=== PATIENT | female | born 1980 | race Caucasian/White ===

== ENCOUNTER 2017-05-15 21:47 | Emergency (ER) | payer SELFPAY ==
[~2017-05-15] VITALS: Ht 160 cm; Wt 81.8 kg
[2017-05-16 06:03] VITALS: BP 122/69
[2017-05-16] MEDS ORDERED: METHOCARBAMOL 500 MG TABLET PO ONE (06:15)
[2017-05-16] MEDS ORDERED: NAPROXEN 250 MG TABLET PO ONE (06:15)
== END 2017-05-16 06:47 | disposition home or self-care (01) ==
LOC: EMS 21:50
DX: S29.012A Strain of muscle and tendon of back wall of thorax, initial encounter (principal); M53.3 Sacrococcygeal disorders, not elsewhere classified; X58.XXXA Exposure to other specified factors, initial encounter; Y93.89 Activity, other specified; Y92.89 Other specified places as the place of occurrence of the external cause; Y99.8 Other external cause status
CPT/HCPCS: 99283